=== PATIENT | female | born 1970 | race American Indian/Alaskan Native ===

== ENCOUNTER 2016-09-22 22:58 | Emergency (ER) | payer OTHER ==
[2016-09-23 02:10] LABS: Hematocrit 34.8 % (30.3-42.9); Hemoglobin 11.3 gm/dl (10.1-14.3); Mean Corpuscular HGB Conc 33 % (30-34); Mean Corpuscular Hemoglobin 26 pg (28-32); Mean Corpuscular Volume 81 fl (79-97); Platelet Count 282 K/mm3 (140-440); Red Blood Count 4.29 M/mm3 (3.65-5.03); Red Cell Distribution Width 15.7 % (13.2-15.2)
[2016-09-23 02:15] LABS: BUN/Creatinine Ratio 14.28; Blood Urea Nitrogen 10 mg/dL (7-17); Calcium 8.7 mg/dL (8.4-10.2); Carbon Dioxide 28 mmol/L (22-30); Chloride 102.7 mmol/L (98-107); Glucose 85 mg/dL (65-100); Potassium 4.1 mmol/L (3.6-5.0); Sodium 143 mmol/L (137-145)
[2016-09-23 02:16] LABS: Anion Gap 16 mmol/L
[2016-09-23] MEDS ORDERED: CATAPRES PO ONE (14:31)
--- NOTE | 2016-09-23 15:23 | Cat Scan Report ---
FINAL REPORT EXAM: CT HEAD/BRAIN WO CON HISTORY: headache TECHNIQUE: Standard unenhanced CT of the head at 5.0 millimeter axial increments PRIORS: None. FINDINGS: The ventricular system is normal in size and configuration. There is no evidence for parenchymal volume loss. There is no evidence for mass lesion, mass effect, midline shift, acute intracranial hemorrhage, or acute ischemia/ infarction. Visualized paranasal sinuses are clear. IMPRESSION: Negative CT of the head. No acute intracranial process noted.
[2016-09-23 15:47] VITALS: BP 135/87
--- NOTE | 2016-09-23 16:32 | Emergency Department Report ---
HPI - General Chief Complaint: Extremity Injury, Lower Time Seen by Provider: 09/23/16 14:06 - HPI HPI: Chief complaint: Leg pain and swelling HPI: Patient is a 46-year-old female who states she had a previous history of hypertension that went away after she lost a large amount of weight. Patient states she's gained approximately 30/90 pounds back and states she has noticed she had a throbbing headache for the last 1-2 days. Patient is concerned that her blood pressure might be up as she's had this headache before when her blood pressure was up. Patient also complains of bilateral lower leg pain and swelling and she has been traveling a great deal lately including air flight. Patient does not have any chest pain or shortness of breath but does have a slight dry cough. No fever, nausea, vomiting or diarrhea. Mode of arrival: private car Source: Patient Began: Swelling for 3 days, headache for 1-2 days Duration: See above Context: See above Quality: Pressure Severity: 8 out of 10 Improved with: Nothing Worsened with: Nothing Associated signs and symptoms: See above ED Past Medical Hx - Past Medical History Previous Medical History?: Yes Hx Hypertension: Yes Hx of Cancer: Yes (Ovarian) Hx Asthma: Yes - Surgical History Past Surgical History?: Yes Additional Surgical History: Knee - Social History Smoking Status: Never Smoker Substance Use Type: None - Medications Home Medications: Home Medications Medication Instructions Recorded Confirmed Last Taken Type Hydrochlorothiazide [HCTZ] 12.5 mg PO QDAY #30 capsule 09/23/16 Unknown Rx amLODIPine [Norvasc] 5 mg PO DAILY #30 tab 09/23/16 Unknown Rx ED Review of Systems ROS: Stated complaint: LOWER EXTREMITY SWELLING Other details as noted in HPI ROS Constitutional: No fever ENT: No uri symptoms Cardiovascular: No chest pain Respiratory: No sob GI: No nausea vomiting or diarrhea : No dysuria frequency or urgency, Skin: No rash Neuro: No focal weakness or numbness Psych: No depression Misael/lymph: edema Physical Exam - Physical Exam Vital Signs: Vital Signs 09/23/16 09/23/16 09/23/16 00:57 05:20 11:26 Temperature 97.9 F 97.7 F Pulse Rate 89 81 Respiratory 18 18 Rate Blood Pressure 174/106 150/101 171/111 Blood Pressure [Left] O2 Sat by Pulse 100 Oximetry 09/23/16 09/23/16 09/23/16 11:27 14:43 14:48 Temperature Pulse Rate 94 H Respiratory 16 Rate Blood Pressure 171/111 159/104 Blood Pressure [Left] O2 Sat by Pulse 99 99 Oximetry 09/23/16 15:46 Temperature Pulse Rate 91 H Respiratory 18 Rate Blood Pressure Blood Pressure 135/87 [Left] O2 Sat by Pulse Oximetry Physical Exam: GENERAL: The patient is well-developed well-nourished . HEENT: Normocephalic. Atraumatic. Extraocular motions are intact. Patient has moist mucous membranes. NECK: Supple. No meningitic signs are noted. There is no adenopathy noted. CHEST/LUNGS: Clear to auscultation. There is no respiratory distress noted. HEART/CARDIOVASCULAR: Regular. There is no tachycardia. There is no gallop rub or murmur. ABDOMEN: Abdomen is soft, nontender. Patient has normal bowel sounds. There is no abdominal distention. SKIN: There is no rash. There is 1+ bilateral pedal edema. There is no diaphoresis. NEURO: The patient is awake, alert, and oriented. The patient is cooperative. The patient has no focal neurologic deficits. The patient has normal speech. MUSCULOSKELETAL: There is no tenderness or deformity. There is no limitation range of motion. There is no evidence of acute injury. ED Course Vital Signs 09/23/16 09/23/16 09/23/16 00:57 05:20 11:26 Temperature 97.9 F 97.7 F Pulse Rate 89 81 Respiratory 18 18 Rate Blood Pressure 174/106 150/101 171/111 Blood Pressure [Left] O2 Sat by Pulse 100 Oximetry 09/23/16 09/23/16 09/23/16 11:27 14:43 14:48 Temperature Pulse Rate 94 H Respiratory 16 Rate Blood Pressure 171/111 159/104 Blood Pressure [Left] O2 Sat by Pulse 99 99 Oximetry 09/23/16 15:46 Temperature Pulse Rate 91 H Respiratory 18 Rate Blood Pressure Blood Pressure 135/87 [Left] O2 Sat by Pulse Oximetry - Reevaluation(s) Reevaluation #1: 09/23/16 Patient was given 0.1 mg of by mouth clonidine with improvement of her blood pressure. ED Medical Decision Making - Lab Data Result diagrams: 09/23/16 01:39 09/23/16 01:39 Laboratory Tests 09/23/16 14:20 Urine HCG, Qual Negative - Radiology Data Radiology results: report reviewed (bilateral Doppler the lower extremity is negative for DVT.) interpreted by me: Chest x-ray shows no acute process. Critical care attestation.: If time is entered above; I have spent that time in minutes in the direct care of this critically ill patient, excluding procedure time. ED Disposition Clinical Impression: Leg edema Qualifiers: Laterality: bilateral Qualified Code(s): R60.0 - Localized edema Hypertension Qualifiers: Hypertension type: essential hypertension Qualified Code(s): I10 - Essential ( primary) hypertension Disposition: DISCHARGED TO HOME OR SELFCARE Is pt being admited?: No Does the pt Need Aspirin: No Condition: Stable Instructions: Hypertension (ED), Leg Edema (ED) Prescriptions: Hydrochlorothiazide [HCTZ] 12.5 mg PO QDAY #30 capsule amLODIPine [Norvasc] 5 mg PO DAILY #30 tab Referrals: ANDRIY TORRES JR, MD [Staff Physician] - 7-10 days (Dr. Torres is a primary care Dr. Carbajal follow-up with free her blood pressure) KIMBERLY LOZADA MD [Primary Care Provider] - 7-10 days Time of Disposition: 16:35
--- NOTE | 2016-09-24 07:32 | XRay Report ---
ROUTINE CHEST, TWO VIEWS: HISTORY: chest pain. The trachea, heart, mediastinal contour, lung frey and bony thorax are unremarkable. IMPRESSION: Unremarkable chest x-ray.
== END 2016-09-23 17:12 | disposition home or self-care (01) ==
LOC: ED 22:58
DX: R60.0 Localized edema (principal); I10 Essential (primary) hypertension; R51 Headache; J45.909 Unspecified asthma, uncomplicated; Z85.43 Personal history of malignant neoplasm of ovary
CPT/HCPCS: 36415; 70450; 71020; 80048; 81025; 85027; 93970